=== PATIENT | female | born 2000 | race Two or more races ===

== ENCOUNTER 2019-12-27 20:08 | Emergency (ER) | payer OTHER ==
[~2019-12-27] VITALS: Ht 152.4 cm; Wt 49.9 kg
--- NOTE | 2019-12-27 20:23 | NUR ---
at bedside for assessment
[2019-12-27 20:48] VITALS: BP 121/87
--- NOTE | 2019-12-27 20:48 | NUR ---
MSE COMPLETED, PT D/C'D HOME ACI GIVEN. PT AMBULATED W/O DIFF/TOOK ALL BELONGINGS HOME.
== END 2019-12-27 20:49 | disposition home or self-care (01) ==
LOC: ER 20:11
DX: U07.1 COVID-19 (principal); J02.9 Acute pharyngitis, unspecified
CPT/HCPCS: A4663